=== PATIENT | male | born 1945 | race Caucasian/White ===

== ENCOUNTER → 2019-07-27 | Outpatient (CLI) | payer MEDICARE, OTHER, SELFPAY | PROVIDERS: Family Provider Family Medicine; Visit Provider Internal Medicine Hematology & Oncology | DX: C90.01 Multiple myeloma in remission (principal); Z92.21 Personal history of antineoplastic chemotherapy | CPT/HCPCS: 80053; 82784 ×3; 83883 ×2; 84155; 84165; 85025; 99213 ==

== ENCOUNTER → 2019-08-03 09:51 | Outpatient (BNVA) | payer MEDICARE, OTHER, SELFPAY | PROVIDERS: Family Provider Family Medicine; PCP Family Medicine | DX: E78.2 Mixed hyperlipidemia (principal) | CPT/HCPCS: 80048; 80061 ==

== ENCOUNTER 2019-08-28 10:08 | Outpatient (CLI) | payer MEDICARE, OTHER, SELFPAY | END 2019-08-28 10:09 | disposition home or self-care (01) | LOC: ONCMED 10:08 | PROVIDERS: Family Provider Family Medicine; PCP Family Medicine; Visit Provider Internal Medicine Hematology & Oncology | DX: C90.01 Multiple myeloma in remission (principal); N18.2 Chronic kidney disease, stage 2 (mild); R10.9 Unspecified abdominal pain; G89.29 Other chronic pain; M54.9 Dorsalgia, unspecified; Z92.3 Personal history of irradiation; Z85.51 Personal history of malignant neoplasm of bladder; Z94.84 Stem cells transplant status; Z92.21 Personal history of antineoplastic chemotherapy | CPT/HCPCS: G0463 ==

== ENCOUNTER 2020-01-21 10:27 | Outpatient (CLI) | payer MEDICARE, OTHER, SELFPAY ==
--- NOTE | 2020-01-21 10:34 | XRR_ITS ---
PROCEDURE INFORMATION: Exam: XR Chest, 2 Views Exam date and time: 01/21/2020 11:07 AM Age: 75 years old Clinical indication: Condition or disease; Other: Bladder cancer; Prior surgery; Surgery date: 6+ months; Surgery type: Cabg 1997; Additional info: Bladder cancer, HX of multiple myeloma TECHNIQUE: Imaging protocol: XR of the chest Views: 2 views. COMPARISON: CR Chest 2 views* [id number] 01/19/2019 9:06 AM FINDINGS: Lungs: Unremarkable. No consolidation. Pleural space: Unremarkable. No pleural effusion. No pneumothorax. Heart/Mediastinum: Unremarkable. No cardiomegaly. Bones/joints: Unremarkable. XR/XR chest 2V* [id number] IMPRESSION: No acute findings.
[2020-01-21 11:06] LABS: Basophils % 0.3 %; Eosinophils # 0.1 10^3/uL (0.0-0.8); Eosinophils % 1.4 %; Hematocrit 37.4 % (42.0-52.0); Hemoglobin 12.3 g/dL (11.7-16.6); Lymphocytes # 1.4 10^3/uL (0.8-4.8); Lymphocytes % 21.6 %; Mean Corpuscular HGB Conc 32.9 g/dL (30.0-36.0); Mean Corpuscular Hemoglobin 31.4 pg (28.0-34.0); Mean Corpuscular Volume 95.4 fL (80-94); Mean Platelet Volume 8.5 fL (7.4-10.4); Monocytes # 0.7 10^3/uL (0.2-0.9); Monocytes % 10.9 %; Neutrophils # 4.3 10^3/uL (1.8-7.7); Neutrophils % 65.2 %; Nucleated Red Blood Cells % 0 %; Platelet Count 167 10^3/cmm (130-400); Red Blood Count 3.92 10^6/uL (4.1-5.3); Red Cell Distribution Width 13.2 % (12.1-15.1); White Blood Count 6.6 10^3/uL (4.0-10.0)
[2020-01-21 11:29] LABS: Alanine Aminotransferase 17 U/L (0-41); Alkaline Phosphatase 64 IU/L (40-130); Anion Gap 15.7 (5-19); Aspartate Amino Transferase 18 U/L (0-40); Blood Urea Nitrogen 22 mg/dL (8-23); Carbon Dioxide 21 mmol/L (22-29); Chloride 105 mmol/L (98-107); Globulin 3.1 g/dL (1.3-4.6); Glucose 92 mg/dL (65-115); Osmolality Calculated 280 mOsm/kg (285-295); Potassium 4.7 mmol/L (3.5-5.1); Sodium 137 mmol/L (136-145); Total Bilirubin 0.5 mg/dL (0.15-1.2); Total Protein 7.1 g/dL (6.6-8.7)
== END 2020-01-21 10:28 | disposition home or self-care (01) ==
LOC: RAD 10:33
PROVIDERS: PCP Family Medicine; Visit Provider Urology
DX: C67.9 Malignant neoplasm of bladder, unspecified (principal)
CPT/HCPCS: 71046; 80053; 85025

== ENCOUNTER → 2020-02-04 09:15 | Outpatient (BNVA) | payer MEDICARE, OTHER, SELFPAY | PROVIDERS: PCP Family Medicine; Visit Provider Internal Medicine Cardiovascular Disease | DX: E78.2 Mixed hyperlipidemia (principal) | CPT/HCPCS: 80061 ==

== ENCOUNTER 2020-02-23 09:27 | Outpatient (CLI) | payer MEDICARE, OTHER, SELFPAY ==
--- NOTE | 2020-02-23 09:39 | XRR_ITS ---
PROCEDURE INFORMATION: Exam: XR Osseous Survey; Complete Axial And Appendicular Skeleton Exam date and time: 02/23/2020 10:22 AM Age: 75 years old Clinical indication: Condition or disease; Condition/disease: Myeloma. HX of bladder, prostate, skin cancer. Restaging; Prior surgery; Surgery date: 6+ months; Surgery type: Open heart, hip replacement; Additional info: HX of cancer/special attn: To R ribs/myeloma/restaging eval TECHNIQUE: Imaging protocol: Radiological examination. Complete osseous survey. Axial and appendicular skeleton. COMPARISON: CR Bone Survey Complete* [id number] 08/14/2018 11:01 AM FINDINGS: Bones/joints: The patient is status post median sternotomy with sternal cerclage wires. Diffuse osteopenia. Stable sclerotic border right scapular lesion. Stable nonspecific enlargement right posterior 10th rib. Mild C4-C5 and C5-C6 anterolisthesis. C6-C7 degenerative disc disease with slight spondylosis. Slight C7-T1 retrolisthesis. Previous L1 status post bilateral transpedicular vertebroplasty. Bilateral lower lumbar facet primary osteoarthritis. Left total hip arthroplasty. No new destructive bony process identified. Soft tissues: Bilateral lateral pelvic bowl surgical clips. XR/XR bone survey* [id number] IMPRESSION: 1. Stable sclerotic border right scapular lesion. 2. Stable nonspecific enlargement right posterior 10th rib. 3. No new destructive bony process identified.
[2020-02-23 10:36] LABS: Basophils % 0.6 %; Eosinophils # 0.1 10^3/uL (0.0-0.8); Eosinophils % 1.9 %; Hematocrit 38.1 % (42.0-52.0); Hemoglobin 12.1 g/dL (11.7-16.6); Lymphocytes # 1.4 10^3/uL (0.8-4.8); Lymphocytes % 20.6 %; Mean Corpuscular HGB Conc 31.8 g/dL (30.0-36.0); Mean Corpuscular Hemoglobin 30.5 pg (28.0-34.0); Mean Platelet Volume 8.5 fL (7.4-10.4); Monocytes # 0.6 10^3/uL (0.2-0.9); Monocytes % 8.9 %; Neutrophils # 4.66 10^3/uL (1.8-7.7); Neutrophils % 66.7 %; Nucleated Red Blood Cells % 0 %; Platelet Count 185 10^3/cmm (130-400); Red Blood Count 3.97 10^6/uL (4.1-5.3)
[2020-02-23 11:02] LABS: Alanine Aminotransferase 16 U/L (0-41); Albumin Level 4.2 g/dL (3.5-5.2); Alkaline Phosphatase 58 IU/L (40-130); Anion Gap 15.3 (5-19); Aspartate Amino Transferase 17 U/L (0-40); Blood Urea Nitrogen 34 mg/dL (8-23); Calcium 9.9 mg/dL (8.5-10.5); Carbon Dioxide 19 mmol/L (22-29); Chloride 104 mmol/L (98-107); Globulin 2.8 g/dL (1.3-4.6); Glucose 115 mg/dL (65-115); Immunoglobulin IGA 206 mg/dL (70-400); Immunoglobulin IGG 1202 mg/dL (700-1600); Immunoglobulin IGM 105 mg/dL (40-230); Osmolality Calculated 274 mOsm/kg (285-295); Potassium 5.3 mmol/L (3.5-5.1); Sodium 133 mmol/L (136-145); Total Bilirubin 0.5 mg/dL (0.15-1.2)
[2020-02-24 15:35] LABS: KAPPA LIGHT CHAIN, FREE, SERUM 64.4 mg/L (3.3-19.4); KAPPA/LAMBDA LIGHT CHAINS FREE 2.03 (0.26-1.65); LAMBDA LIGHT CHAIN, FREE, SERU 31.7 mg/L (5.7-26.3)
[2020-02-24 16:05] LABS: PROTEIN, TOTAL 6.9 g/dL (6.1-8.1)
[2020-02-25 13:24] LABS: ALBUMIN 3.9 g/dL (3.8-4.8); ALPHA 1 GLOBULIN 0.3 g/dL (0.2-0.3); ALPHA 2 GLOBULIN 0.8 g/dL (0.5-0.9); BETA 1 GLOBULIN 0.4 g/dL (0.4-0.6); BETA 2 GLOBULIN 0.4 g/dL (0.2-0.5); GAMMA GLOBULIN 1.2 g/dL (0.8-1.7)
== END 2020-02-23 09:28 | disposition home or self-care (01) ==
LOC: RAD 09:30
PROVIDERS: PCP Family Medicine; Visit Provider Internal Medicine Hematology & Oncology
DX: C90.00 Multiple myeloma not having achieved remission (principal); Z85.51 Personal history of malignant neoplasm of bladder; Z85.46 Personal history of malignant neoplasm of prostate; Z85.828 Personal history of other malignant neoplasm of skin
CPT/HCPCS: 36415; 77075; 80053; 82232; 82784; 83883; 84155; 84165; 85025

== ENCOUNTER 2020-02-26 10:00 | Outpatient (CLI) | payer MEDICARE, OTHER, SELFPAY ==
--- NOTE | 2020-02-26 11:43 | ONC FU_ITS ---
Dr. Del Toro follow up note Patient: Paulino Puente Unit #: [id number]: 1945 Dicatated By: Ashtyn Del Toro M.D.Date of Visit:Feb 26, 2020 Onc Med Follow-up/Prog Note History of Present Illness: Mr. Paulino Puente, 75-year-old gentleman who was diagnosed with multiple myeloma on 05/03/2010 initially he was treated with Revlimid and dexamethasone till October 2010 achieving of partial response to therapy and in the November 2010 he received high-dose melphalan plus auto peripheral blood stem cell therapy. Since then, he is in remission. As per patient , during that time he was found to have hematuria and bladder outlet obstruction and he underwent cystoscopy on 11/23/2010 which showed 2 cm bladder tumor , biopsy and fulguration was done which showed noninvasive low-grade papillary urethral carcinoma, because of very low-grade malignancy at that time no other definitive intervention was considered, in January 2014 patient had recurrence of hematuria underwent cystoscopy and diagnosed with bladder cancer for which he underwent radical cystectomy with extended pelvic lymph node dissection and and the ileal conduit urinary diversion on 03/22/2014. Bone survey done on 08/14/2018 showed no new lytic lesion throughout the skeleton, stable expansile bone lesion in the right posterior 10th rib and in the right scapula no interval change since 08/26/2017 Mild renal insufficiency creatinine around 1.6, Followed by guest experience captain from [place] [place] [facility] for follow-up, denies any specific complaints, no fever chills, no nausea or vomiting, no diarrhea or constipation, right flank/lower back pain mentioned during last visit resolved after a few days on its own patient has history of chronic back pain due to disc problem or arthritis. No new bony pains, no fever chills, no nausea or vomiting, no diarrhea or constipation, no hematuria, no weight loss. Medications: Atorvastatin Calcium 1 (40 mg) Tablet Oral daily, Carvedilol 1 Tablet (of 12.5 mg) Oral daily, Fish Oil 2 Capsule (of 400 mg) Oral daily Allergies: FentaNYL Review of Systems: Constitutional - Appetite is good and weight is stable. No fever, chills, hot flashes, or night sweats. Energy level is decreased, ENMT - No sinus congestion/drainage. No mouth sores. No sore throat or difficulty swallowing, Hematologic/Lymphatic - No abnormal bruising or bleeding, Respiratory - No shortness of breath. No cough. No pleuritic pain or hemoptysis, Cardiovascular - No angina pain. No palpitations, Gastrointestinal - No nausea or vomiting. No heartburn or acid reflux. No diarrhea or constipation. No blood in the stool or black stools, Genitourinary (M) - No dysuria or hematuria. No urinary frequency. No urgency or incontinence, Musculoskeletal - No joint or bone pain, Neurologic - No headache or dizziness. No numbness/paresthesias or other focal neurologic symptoms, Psychiatric - No anxiety or depression. No insomnia. Vital Signs: Performed on Feb 26, 2020 10:12 Height - 69.00 in Weight - 225.4 lbs (LOW) BSA - 2.17 sq.m BMI - 33.29 (HIGH) Temperature - 98.4 F Pulse - 71 /min Respiration - 16 /min BP - 121/75 mm(hg) O2 Sat - 94 % (LOW) Pain - 0 Performance Status: 1 - No physically strenuous activity, but ambulatory and able to carry out light or sedentary work (e.g. office work, light house work). (ECOG) Physical Examination: ENMT - No mouth sores, no thrush, no jaundice, Respiratory - Lungs are clear, Cardiovascular - Regular rate and rhythm of heart, Abdomen - Soft, bowel sounds present, Extremities - Trace edema bilaterally. Lab/Imaging: Most recent lab results are not available for this patient. Impression: multiple myeloma Diagnosed on 05/03/2010, IgG kappa type, stage IIIA, initial presentation with rib pain and rib lesion, biopsy of rib showed plasmacytoma andAt the time of diagnosis his hemoglobin was 12.1 creatinine was 0.9, beta-2 microglobulin 2.12, C-reactive protein 7.7 mg/dL, M spike was 1.8 g/dL, IgG kappa type. IgG 25 20 mg/dL, IgA 128 him , IgM 40 mg/dL. Free light chains kappa 33.6 mg/dL, lambda 1.53 mg/dL, kappa lambda ratio 22 Urine 24-hour M spike was negative bone marrow plasma cell 60%. Cytogenetics normal, myeloma fish normal bone survey abnormal lytic lesion in the calvarium, C4 vertebral body, right scapula and left acetabulum, compression fracture of L1 vertebral body. status post L1 vertebroplasty and CT-guided left acetabular cementoplasty and radiation therapy to the hip and vertebral body. Initial treatment with Revlimid and dexamethasone from May 2010 through October 2010 with partial response to therapy with M spike of 0.4 g/dL and 5% bone marrow plasmacytosis High-dose melphalan plus auto PBSCT in the November 2010. Now in remission since then .#2 noninvasive low-grade papillary urethral carcinoma status post fulguration in October 2010 #3 bladder cancer diagnosed in January 2014 status post radical cystectomy with extended pelvic lymph node dissection and an ileal conduit urinary diversion on 03/22/2014 now in remission Bone survey done on 08/26/2017 showed nonspecific right scapular lytic lesion with rim of sclerosis, #2 right posterior 10th rib expansion may be related to myelomatous changes or post trauma , as mentioned earlier patient had trauma to his right posterior chest wall due to fall in december/January 2017 with possible rib damage Quantitative immunoglobin done on 08/26/2017 showed IgG level 1100 normal being 700-1600 IgA level 180 normal being 70-400 mg/dL IgM level 81 normal being 40-230 mg/dL next Serum protein electrophoresis done on 08/26/2017 showed normal pattern. No monoclonal protein is detected next Serum light chain assay done on 08/26/2017 showed kappa free level 57.82 normal being 3.30-19.40 mg/L Lambda free level 25.76 normal being 5.71 to 26 0.30 mg/L [facility] lambda ratio 2.24 normal being 0.26 to 1.65 mg /l Beta-2 microglobulin 0.340 normal being 0.109 --0.253 milligram per deciliter Serum creatinine 1.8 Labs checked on 12/02/2017 showed serum protein electrophoresis normal pattern, no monoclonal protein detected Serum light chain assay showed kappa free chain 48.72 mg/L normal being 3.3-19.4 Lambda free chains 26.16 mg/L normal being 5.7-26.3 [facility] lambda free ratio 1.86 normal being less than 1.65. Serum creatinine 1.8 be due to Michelman 0.350 Follow-up Multiple myeloma panel done on 06/12/2018 showed SPEP within normal pattern Serum kappa light chains 55.10 normal range less than 19.40 Serum lambda chain 26.84 normal less than 26.30 [facility]/lambda ratio 2.05 normal being 0.26- 1.65 Follow-up bone survey done on 08/14/2018 showed no new lytic lesions throughout the skeleton, stable expansile bone lesion in the right posterior 10th rib and right scapula no interval change since 08/26/2017 Plan: Discussed with patient regarding his labs white blood count 7 hemoglobin 12.1 hematocrit 38.1 platelets 185,000 CMP within normal limit except potassium 5.3 creatinine 1.8 and myeloma panel showed IgA 206, IgG 1202, IgM 105, SPEP showed no restricted M protein seen, beta-2 microglobulin 4.10, normal less than 2.51. Serum light chain assay shows kappa light chain 64.4%, lambda light chain 31.7%, kappa/lambda ratio 2.03, normal being less than 1.65 Bone survey done on February 23, 2020 showed stable sclerotic border right scapula lesion. Stable nonspecific enlargement right posterior 10th rib. No new destructive bony process identified. Clinically, patient is doing well with no new signs symptoms, follow-up lab work-up CBC is within normal range but concern is progressive renal insufficiency, patient is being followed by nephrology from [place], in [facility] [place]. His myeloma panel showed normal SPEP, and quantitative hemoglobins, stable, bone survey but elevated serum light chains and ratio so concern is whether patient is developing myeloma nephropathy, we will check 24-hour urine protein for electrophoresis and immunofixation, if there is evidence of myeloma protein in the urine, then will consider treatment for myeloma in effort to salvage his kidney function on the other hand if is normal, patient was advised to follow-up with nephrology and their recommendations. Patient return to clinic in 1 week with a BMP and to discuss 24-hour urine protein electrophoresis/immunofixation results. Signed By: Barjinder Del Toro, M.D. <<Signature on File>>
== END 2020-02-26 10:01 | disposition home or self-care (01) ==
LOC: ONCMED 10:04
PROVIDERS: PCP Family Medicine; Visit Provider Internal Medicine Hematology & Oncology
DX: C90.00 Multiple myeloma not having achieved remission (principal); N28.9 Disorder of kidney and ureter, unspecified; Z85.51 Personal history of malignant neoplasm of bladder; G89.29 Other chronic pain; M54.9 Dorsalgia, unspecified; Z94.84 Stem cells transplant status; Z92.3 Personal history of irradiation; Z92.21 Personal history of antineoplastic chemotherapy
CPT/HCPCS: 99214

== ENCOUNTER 2020-02-29 08:22 | Outpatient (CLI) | payer MEDICARE, OTHER, SELFPAY | END 2020-02-29 08:23 | disposition home or self-care (01) | LOC: ONCMED 08:25 | PROVIDERS: PCP Family Medicine; Visit Provider Internal Medicine Hematology & Oncology | DX: C90.00 Multiple myeloma not having achieved remission (principal) | CPT/HCPCS: 84156; 84166 ==

== ENCOUNTER → 2020-03-03 09:23 | Outpatient (BNVA) | payer MEDICARE, OTHER, SELFPAY | PROVIDERS: PCP Family Medicine; Referring Provider Internal Medicine Hematology & Oncology; Visit Provider Internal Medicine Hematology & Oncology | DX: C67.9 Malignant neoplasm of bladder, unspecified (principal); E78.2 Mixed hyperlipidemia; I25.10 Atherosclerotic heart disease of native coronary artery without angina pectoris | CPT/HCPCS: 80048 ==

== ENCOUNTER 2020-03-07 10:32 | Outpatient (CLI) | payer MEDICARE, OTHER, SELFPAY ==
--- NOTE | 2020-03-07 16:47 | ONC FU_ITS ---
Dr. Del Toro follow up note Patient: Paulino Puente Unit #: [id number]: 1945 Dicatated By: Ashtyn Del Toro M.D.Date of Visit:Mar 07, 2020 Onc Med Follow-up/Prog Note History of Present Illness: Mr. Paulino Puente, 75-year-old gentleman who was diagnosed with multiple myeloma on 05/03/2010 initially he was treated with Revlimid and dexamethasone till October 2010 achieving of partial response to therapy and in the November 2010 he received high-dose melphalan plus auto peripheral blood stem cell therapy. Since then, he is in remission. As per patient , during that time he was found to have hematuria and bladder outlet obstruction and he underwent cystoscopy on 11/23/2010 which showed 2 cm bladder tumor , biopsy and fulguration was done which showed noninvasive low-grade papillary urethral carcinoma, because of very low-grade malignancy at that time no other definitive intervention was considered, in January 2014 patient had recurrence of hematuria underwent cystoscopy and diagnosed with bladder cancer for which he underwent radical cystectomy with extended pelvic lymph node dissection and and the ileal conduit urinary diversion on 03/22/2014. Bone survey done on 08/14/2018 showed no new lytic lesion throughout the skeleton, stable expansile bone lesion in the right posterior 10th rib and in the right scapula no interval change since 08/26/2017 Mild renal insufficiency creatinine around 1.6, Followed by production weigher from [place] for follow-up, denies any specific complaints, no nausea vomiting, no diarrhea constipation, no new bony pains and recently underwent 24-hour urine protein electrophoresis and immunofixation for progressive mild renal insufficiency Medications: Aspirin 1 Tablet (of 81 mg) Tablet, chewable Oral daily, Atorvastatin Calcium 1 (40 mg) Tablet Oral daily, Carvedilol 1 Tablet (of 12.5 mg) Oral daily, Fish Oil 2 Capsule (of 400 mg) Oral daily Allergies: FentaNYL Review of Systems: Constitutional - Appetite is good and weight is stable. No fever, chills, hot flashes, or night sweats. Energy level is decreased, ENMT - No sinus congestion/drainage. No mouth sores. No sore throat or difficulty swallowing, Hematologic/Lymphatic - No abnormal bruising or bleeding, Respiratory - No shortness of breath. No cough. No pleuritic pain or hemoptysis, Cardiovascular - No angina pain. No palpitations, Gastrointestinal - No nausea or vomiting. No heartburn or acid reflux. No diarrhea or constipation. No blood in the stool or black stools, Genitourinary (M) - No dysuria or hematuria. No urinary frequency. No urgency or incontinence, Musculoskeletal - No joint or bone pain, Neurologic - No headache or dizziness. No numbness/paresthesias or other focal neurologic symptoms, Psychiatric - No anxiety or depression. No insomnia. Vital Signs: Performed on Mar 07, 2020 10:34 Height - 69.00 in Weight - 226.8 lbs (HIGH) BSA - 2.18 sq.m BMI - 33.49 (HIGH) Temperature - 98.4 F Pulse - 64 /min Respiration - 24 /min BP - 148/86 mm(hg) (HIGH) O2 Sat - 98 % Pain - 0 Performance Status: 0 - Fully active, able to carry on all predisease activities without restrictions. (ECOG) Physical Examination: ENMT - No mouth sores, no thrush, no jaundice, Respiratory - Lungs are clear, Cardiovascular - Regular rate and rhythm of heart, Abdomen - Soft, bowel sounds present, Extremities - No visible edema. Lab/Imaging: Test performed on Mar 03, 2020 09:23 Glucose 82 mg/dL BUN 21 mg/dL Creatinine 1.5 mg/dL Sodium 134 mmol/L Potassium 4.4 mmol/L Chloride 106 mmol/L CO2 19 mmol/L Calcium 8.7 mg/dL Test performed on Feb 23, 2020 10:30 Anion Gap 15.3 Cr Clearance (Est) 49.70 mL/min Protein, Total 7.0 g/dL Albumin 4.2 g/dL Globulin 2.8 g/dL Bilirubin, Total 0.5 mg/dL ALT (SGPT) 16 U/L AST (SGOT) 17 U/L Alkaline Phosphatase 58 IU/L WBC 7.0 10 3/uL RBC 3.97 10 6/uL HGB 12.1 g/dL HCT 38.1 % MCV 96.0 fL MCH 30.5 pg MCHC 31.8 g/dL RDW 13.0 % Platelet Count 185 10 3/cmm MPV 8.5 fL Neutrophils 4.66 10 3/uL Lymphocytes 1.4 10 3/uL Monocytes 0.6 10 3/uL Eosinophils 0.1 10 3/uL Basophils 0.0 10 3/uL Neutrophil % 66.7 % Lymphocyte % 20.6 % Monocyte % 8.9 % Eosinophil % 1.9 % Basophils % 0.6 % NRBC % 0 % IgG 1202 mg/dL IgA 206 mg/dL IgM 105 mg/dL Impression: multiple myeloma Diagnosed on 05/03/2010, IgG kappa type, stage IIIA, initial presentation with rib pain and rib lesion, biopsy of rib showed plasmacytoma andAt the time of diagnosis his hemoglobin was 12.1 creatinine was 0.9, beta-2 microglobulin 2.12, C-reactive protein 7.7 mg/dL, M spike was 1.8 g/dL, IgG kappa type. IgG 25 20 mg/dL, IgA 128 him , IgM 40 mg/dL. Free light chains kappa 33.6 mg/dL, lambda 1.53 mg/dL, kappa lambda ratio 22 Urine 24-hour M spike was negative bone marrow plasma cell 60%. Cytogenetics normal, myeloma fish normal bone survey abnormal lytic lesion in the calvarium, C4 vertebral body, right scapula and left acetabulum, compression fracture of L1 vertebral body. status post L1 vertebroplasty and CT-guided left acetabular cementoplasty and radiation therapy to the hip and vertebral body. Initial treatment with Revlimid and dexamethasone from May 2010 through October 2010 with partial response to therapy with M spike of 0.4 g/dL and 5% bone marrow plasmacytosis High-dose melphalan plus auto PBSCT in the November 2010. Now in remission since then .#2 noninvasive low-grade papillary urethral carcinoma status post fulguration in October 2010 #3 bladder cancer diagnosed in January 2014 status post radical cystectomy with extended pelvic lymph node dissection and an ileal conduit urinary diversion on 03/22/2014 now in remission Bone survey done on 08/26/2017 showed nonspecific right scapular lytic lesion with rim of sclerosis, #2 right posterior 10th rib expansion may be related to myelomatous changes or post trauma , as mentioned earlier patient had trauma to his right posterior chest wall due to fall in January 2017 with possible rib damage Quantitative immunoglobin done on 08/26/2017 showed IgG level 1100 normal being 700-1600 IgA level 180 normal being 70-400 mg/dL IgM level 81 normal being 40-230 mg/dL next Serum protein electrophoresis done on 08/26/2017 showed normal pattern. No monoclonal protein is detected next Serum light chain assay done on 08/26/2017 showed kappa free level 57.82 normal being 3.30-19.40 mg/L Lambda free level 25.76 normal being 5.71 to 26 0.30 mg/L [facility] lambda ratio 2.24 normal being 0.26 to 1.65 mg /l Beta-2 microglobulin 0.340 normal being 0.109 --0.253 milligram per deciliter Serum creatinine 1.8 Labs checked on 12/02/2017 showed serum protein electrophoresis normal pattern, no monoclonal protein detected Serum light chain assay showed kappa free chain 48.72 mg/L normal being 3.3-19.4 Lambda free chains 26.16 mg/L normal being 5.7-26.3 [facility] lambda free ratio 1.86 normal being less than 1.65. Serum creatinine 1.8 be due to Michelman 0.350 Follow-up Multiple myeloma panel done on 06/12/2018 showed SPEP within normal pattern Serum kappa light chains 55.10 normal range less than 19.40 Serum lambda chain 26.84 normal less than 26.30 [facility]/lambda ratio 2.05 normal being 0.26- 1.65 Follow-up bone survey done on 08/14/2018 showed no new lytic lesions throughout the skeleton, stable expansile bone lesion in the right posterior 10th rib and right scapula no interval change since 08/26/2017 Plan: Discussed with patient regarding his labs BMP done on March 03, 2020 shows creatinine improved to 1.5, which is baseline, from 1.8 on February 23, 2020 and 24-hour urine protein electrophoresis and immunofixation done on February 29, 2020 showed, no monoclonal immunoglobulin detected. Clinically, patient has no signs symptom suggestive of recurrence of disease, or disease progression, his follow-up CMP done on February 23, 2020 showed worsening of renal function test whereas remaining myeloma panel was within normal range except mildly elevated serum light chain ratio so there was a concern about developing myeloma nephropathy but with appropriate hydration, patient was also advised to discontinue carbonated drinks, his renal function test improved and returned to baseline creatinine, which is around 1.5 and 24-hour urine protein immunofixation showed no monoclonal gammopathy. In that case we will continue to monitor and he will return to clinic in 6 months with CBC CMP and myeloma panel. Signed By: Ashtyn Del Toro M.D. <<Signature on File>>
== END 2020-03-07 10:33 | disposition home or self-care (01) ==
LOC: ONCMED 10:36
PROVIDERS: PCP Family Medicine; Visit Provider Internal Medicine Hematology & Oncology
DX: C90.01 Multiple myeloma in remission (principal); Z85.51 Personal history of malignant neoplasm of bladder
CPT/HCPCS: G0463

== ENCOUNTER → 2020-07-06 09:22 | Outpatient (BNVA) | payer MEDICARE, OTHER, SELFPAY | PROVIDERS: PCP Family Medicine; Visit Provider Internal Medicine | DX: N18.9 Chronic kidney disease, unspecified (principal) | CPT/HCPCS: 80069; 82043; 82306; 82310; 83970; 85025 ==

== ENCOUNTER → 2020-09-06 09:35 | Outpatient (BNVA) | payer MEDICARE, SELFPAY | PROVIDERS: PCP Family Medicine; Referring Provider Internal Medicine Hematology & Oncology; Visit Provider Internal Medicine Hematology & Oncology | DX: C90.00 Multiple myeloma not having achieved remission (principal) | CPT/HCPCS: 80053; 83883; 84155; 84165; 85025 ==